=== PATIENT | female | born 1940 | race Caucasian/White ===

== ENCOUNTER → 2017-05-08 | Outpatient (CLI) | payer OTHER ==
[~2017-05-08] MED LIST: ALBUTEROL2.5 MG/31; BACITRACIN-POLY30 GM; BISACODYL SUPP10 MG; CALCIUM 500 +1 EAC5; CALCIUM 500 WI1 EAC4; CARAFATE1 GM/10 ML; CLONAZEPAM 1 MG1 M1; COLACE100 MG; FERREX-150 PLU150 MG; FLOMAX PO; HYDROCODON-ACE1 EAC1; LASIX 40 MG TAB40 MG; LIDOCAINE; LOVASTAT20; LOVENOX; MOM; MUCINEX TA600 MG/TAB; MULTIVITAMINS; MYLANTA; ONDANSETRON HCL8 MG; PERCOCET 5-3251 EACH; POTASSIUM; PRIMIDONE50 MG; PROTONIX40 M2 PO; PROVENTIL; ROXICODONE; SANTYL OINTMENT30 G1; SKELAXIN 800 M800 MG; SPIRIVA; TESSALON PERLE100 MG; VITCB500GO
== END ==
LOC: M.RAD 17:12
DX: J43.1 Panlobular emphysema (principal); J98.4 Other disorders of lung

== ENCOUNTER → 2017-12-30 | Outpatient (CLI) | payer OTHER | LOC: M.RAD 09:51 | DX: Z12.31 Encounter for screening mammogram for malignant neoplasm of breast (principal) ==

== ENCOUNTER → 2018-06-12 | Outpatient (CLI) | payer OTHER | LOC: M.RAD 13:08 | DX: R06.00 Dyspnea, unspecified (principal); M41.84 Other forms of scoliosis, thoracic region; Z98.890 Other specified postprocedural states; Z88.1 Allergy status to other antibiotic agents; Z88.2 Allergy status to sulfonamides ==

== ENCOUNTER → 2019-03-03 | Outpatient (CLI) | payer OTHER | LOC: M.RAD 02-23 11:00 | DX: Z12.31 Encounter for screening mammogram for malignant neoplasm of breast (principal) ==

== ENCOUNTER → 2020-03-30 | Outpatient (CLI) | payer OTHER | LOC: M.RAD 11:00 | PROVIDERS: ATTEND Internal Medicine | DX: Z12.31 Encounter for screening mammogram for malignant neoplasm of breast (principal) ==

== ENCOUNTER → 2020-09-29 | Outpatient (CLI) | payer OTHER | LOC: M.RAD 09-28 15:30 | PROVIDERS: ATTEND Internal Medicine | DX: Z13.820 Encounter for screening for osteoporosis (principal); Z92.241 Personal history of systemic steroid therapy; M81.0 Age-related osteoporosis without current pathological fracture ==

== ENCOUNTER → 2021-04-06 | Outpatient (CLI) | payer OTHER | LOC: M.RAD 11:00 | PROVIDERS: ATTEND Family Medicine | DX: Z12.31 Encounter for screening mammogram for malignant neoplasm of breast (principal) ==